=== PATIENT | male | born 1975 | race Caucasian/White ===

== ENCOUNTER 2018-06-13 17:59 | Emergency (ER) | payer OTHER, SELFPAY ==
[2018-06-13 18:28] LABS: PTT 25.6 SEC (22.9-36.1); Prothrombin Time 12.8 SEC (12.0-14.7)
[2018-06-13 18:35] LABS: Band 3 % (5-11); Eosinophils 1 % (0-10); Hemoglobin 17.4 g/dL (14.0-18.0); Lymphocytes 35 % (21-51); Mean Corpuscular HGB CONC 33.1 g/dL (32.0-36.0); Mean Corpuscular Hemoglobin 30.7 pg (27.0-31.0); Mean Corpuscular Volume 92.8 fL (78.0-98.0); Mean Platelet Volume 6.9 fL (7.4-10.4); Monocytes 9 % (0-10); Neutrophil 44 % (42-75); Platelet Count 298 thou/uL (130-400); Platelet Morphology Comment Appears Adequate; Reactive Lymphocytes 8 % (0-10); Red Blood Cell (RBC) Count 5.67 mill/uL (4.70-6.10); White Blood Cell (WBC) Count 17.4 thou/uL (4.8-10.8)
[2018-06-13 18:39] LABS: ALT (SGPT) 63 U/L (8-55); AST (SGOT) 38 U/L (5-34); Albumin 4.5 g/dL (3.5-5.0); Alkaline Phosphatase 84 U/L (40-150); Anion Gap 20 mmol/L (10-20); BUN (Urea Nitrogen) 12 mg/dL (8.9-20.6); Bilirubin, Total 0.5 mg/dL (0.2-1.2); Calc. Creatinine Clearance 0 mL/min (70-130); Calcium 9.5 mg/dL (7.8-10.44); Carbon Dioxide 19 mmol/L (22-29); Chloride 109 mmol/L (98-107); Estimated GFR-MDRD 82; Globulin 2.8 g/dL (2.4-3.5); Glucose 123 mg/dL (70-105); Potassium 3.9 mmol/L (3.5-5.1); Protein, Total 7.3 g/dL (6.0-8.3); Sodium 144 mmol/L (136-145)
[2018-06-13] MEDS ORDERED: Sodium Chloride 0.9% 1,000 ML ONE (18:58)
[2018-06-13] MEDS ORDERED: Ketorolac Tromethamine 30 MG/ML VIAL ONE (19:09)
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
--- NOTE | 2018-06-13 21:00 | CT ---
CT OF CERVICAL SPINE PERFORMED WITHOUT CONTRAST ENHANCEMENT: 06/13/18 HISTORY: Neck pain. The vertebral bodies are normal in height. There is degenerative disc changes with some mild disc edgardo rowing at C4-5 and C5-6 and more pronounced disc narrowing at C6-7 and C7-T1. The facets appear to be in fairly normal alignment. There is some mild canal narrowing related to some posterior osteophytic change at C4-5. There is left sided foraminal narrowing at the C5-6 level. I do not see any CT evide nce for fracture. Lung apices are clear. IMPRESSION: Arthritic changes of the spine. No CT evidence for fracture. POS: NEREIDA
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
== END 2018-06-13 19:46 | disposition home or self-care (01) ==
LOC: MADERS 17:59
DX: S50.12XA Contusion of left forearm, initial encounter (principal); S00.31XA Abrasion of nose, initial encounter; S00.212A Abrasion of left eyelid and periocular area, initial encounter; I10 Essential (primary) hypertension; F17.210 Nicotine dependence, cigarettes, uncomplicated; Z79.899 Other long term (current) drug therapy; V86.59XA Driver of other special all-terrain or other off-road motor vehicle injured in nontraffic accident, initial encounter
CPT/HCPCS: 70450; 70486; 72125; 80053; 80307; 85025; 85610; 85730; 96361; 96374; J1885; J7050